=== PATIENT | female | born 1960 | race Caucasian/White ===

== ENCOUNTER 2022-05-11 08:10 | Emergency (ER) | payer BC | END 2022-05-11 14:50 | LOC: JD.ED 08:10 | DX: K62.3 Rectal prolapse (principal); I10 Essential (primary) hypertension; J45.909 Unspecified asthma, uncomplicated; E11.9 Type 2 diabetes mellitus without complications; Z88.1 Allergy status to other antibiotic agents; Z88.0 Allergy status to penicillin | CPT/HCPCS: 36415; 80053; 85025; 99284 ==